=== PATIENT | female | born 1975 | race Asian ===

== ENCOUNTER 2025-01-09 13:01 | Emergency (ER) | payer OTHER, SELFPAY ==
[2025-01-09 13:01] VITALS: BP 141/55; PULSE 57; RESP 14; TEMP 35.7; O2SAT 100; BMI 26.0
--- NOTE | 2025-01-09 13:17 | CT_ITS ---
PROCEDURE: ABDOMEN/PELVIS W IV CONT ONLY 01/09/2025 REASON FOR EXAM: LEFT LOWER QUADRANT AND GROIN PAIN TECHNIQUE: ABDOMEN/PELVIS W IV CONT ONLY Coronal and Sagittal reconstruction series were provided. CONTRAST: 100 mL of Isovue 370 One or more dose reduction techniques were used (e.g., Automated exposure control, adjustment of the mA and/or kV according to patient size, use of iterative reconstruction technique. RADIATION DOSE SUMMARY: DLP: 459 mGycm COMPARISON: None FINDINGS: Limited sections of the lung bases demonstrate no focal pulmonary mass or consolidations. The liver, spleen, pancreas, and both adrenal glands demonstrate no acute findings. The gallbladder is unremarkable. The stomach is unremarkable. The small bowel loops are not dilated. The appendix is normal. No colonic obstruction. Thickened and inflamed left colon may reflect colitis. There is no free air or significant free fluid. 1.2 cm cyst within the left kidney. Otherwise bilateral kidneys are unremarkable. No obstructive uropathy. Mildly thickened urinary bladder wall which may reflect cystitis vs nondistention; consider correlation with urinalysis. The pelvic structures are intact. There is no solid pelvic mass. No significant lymphadenopathy. The aorta and IVC demonstrate no acute findings. Visualized osseous structures demonstrate no acute abnormality. CT/Abdomen/Pelvis W IV Cont ONLY IMPRESSION: Inflamed left colon may reflect colitis. No bowel obstruction. Mildly thickened urinary bladder wall which may reflect cystitis vs nondistenti on; consider correlation with urinalysis. Reading Location: [id number]
--- NOTE | 2025-01-09 13:18 | ED.VIS.GI ---
HPI HPI - GI History of Present Illness Chief Complaint: Abd Pain Informant: patient Abdominal Pain/Flank Pain Onset: Weeks Context: Gradual Onset Timing: Continuous Quality: Cramping and Dull Location: LLQ Current Severity: Mild Maximum Severity: Mild Worsened by: Nothing Relieved by: Nothing Nausea/Vomiting/Emesis GI Symptom: Negative for Nausea or Vomiting Diarrhea/Melena/Hematochezia GI Symptom: Positive for - (Mild constipation.); Negative for Diarrhea, Melena or Hematochezia Associated Symptoms Associated Symptoms: Negative for Dysuria, Frequency, Hematuria or Urgency Narrative Narrative: 49-year-old female prior hysterectomy. No other abdominal or pelvic surgeries. States that she has had left lower quadrant and groin pain for about 2 weeks. Initially started as cramping that is more of a dull ache. Denies any dysuria or hematuria. Denies any fever or weight loss. No vomiting. No diarrhea. Mild constipation. No prior history. Today saw an urgent care was sent to the emergency department. Prior similar symptoms: No Recent Illness/Hospitalization: No PFSH PFSH Medical History Abdominal pain Home Medications ?Medication ?Instructions ?Recorded ?Last Taken ?Type ciprofloxacin HCl 500 mg tablet 500 mg PO BID 10 days #20 tabs 01/09/25 Unknown Rx (Cipro) metronidazole 500 mg tablet 500 mg PO TID 10 days #30 tabs 01/09/25 Unknown Rx Allergy/AdvReac Type Severity Reaction Status Date / Time No Known Allergies Allergy Verified 01/09/25 13:02 Social History Smoking Status: Unknown if ever smoked ROS ROS ED ROS Narrative Abdominal pain. Constitutional Constitutional ED: Denies chills or fever(s) ENT ENT ED: Denies ear pain Cardiovascular Cardiovascular: Denies chest pain Respiratory/Chest Respiratory/Chest: Denies cough or dyspnea Gastrointestinal Gastrointestinal: Reports abdominal pain; Denies constipation, diarrhea, melena, nausea or vomiting Genitourinary Genitourinary ED: Denies dysuria or hematuria Musculoskeletal Musculoskeletal: Denies arthralgias or back pain Integumentary Denies abscess Neurologic Neurologic: Denies headache(s) Psychiatric Psychiatric: Denies anxiety Endocrine Endocrinology: Denies polydipsia Hematologic/Lymphatic Hematologic/Lymphatic: Denies easy bleeding Allergic/Immunologic Allergic/Immunologic ED: Denies mouth swelling, tongue swelling or urticaria EXAM Physical Exam Narrative Exam Narrative: 49-year-old female sitting upright in bed. Young boy present with her. Vital signs are stable afebrile. She does not look septic or toxic. No acute distress. H EENT exam pupils round react light. Mytrex members. Neck nontender. Back nontender. Lungs clear to auscultation bilaterally. Heart regular rhythm rate about 60 no murmur. Chest wall ribs nontender. Abdomen soft nondistended normal bowel sounds without peritoneal signs. Mild tenderness left lower quadrant and groin. No obvious hernia or mass. No lymphadenopathy. No pulsatile mass. Moving all 4 extremities. Normal range of motion. No hip pain or swelling. Normal strength and. Neurologically she is awake alert. Answer questions following commands. Const Vital Signs: 01/09/25 13:01 Temperature 96.3 F L Temperature Source Temporal Pulse Rate 57 L Respiratory Rate 14 Blood Pressure 141/55 H Blood Pressure Mean 83 Pulse Ox 100 Oxygen Delivery Method Room Air Positive well nourished and well developed; Negative for cachectic, contractures or unkempt General Appearance ED: well developed and NAD; Negative for unkempt, cachectic, contractures or pallor Nutritional Appearance: Negative for cachectic HEENT Reports moist mucous membranes normocephalic and atraumatic Eyes PERRL and EOMs intact bilaterally General Eye ED: Negative for pale conjunctiva or scleral icterus Neck no lymphadenopathy, supple and no JVD Resp normal respiratory effort and clear to auscultation bilaterally Cardio regular rate, regular rhythm, S1 normal heart sound, S2 normal heart sound and no murmurs GI non-distended and no masses; Negative for non-tender GI Narrative: Mildly tender left lower quadrant and groin. No hernia or mass. No lymphadenopathy. Auscultation: normoactive bowel sounds Palpation: soft and tender; Negative for guarding, rigid, hepatomegaly, splenomegaly, hernia, mass, pulsatile mass or rebound tenderness present Back/Spine no CVA tenderness General Back: Negative for CVA tenderness Cervical Spine: Negative for cervical spine tenderness Thoracic Spine / Upper Back: Negative for thoracic spinal tenderness Lumbar Spine / Lower Back: Negative for lumbar spinal tenderness Coccyx: Negative for other Extremity full ROM General Extremety ED: Negative for edema or tenderness General Extremity: Negative for edema Neuro CN's II-XII intact bilaterally and moves all extremities Sensorium / Orientation: alert, oriented to person, oriented to place and oriented to time; Negative for orientation impaired, confused or lethargic Motor Exam: strength 5/5 throughout Psych mental status grossly normal and thought process normal Appearance: Negative for unkempt Mood & Affect: Negative for depressed, anxious or tearful Skin no wounds General Skin Exam: Negative for jaundice or pallor Lesions: no lesions Rashes: no rashes Trauma: Negative for abrasion Nails: Negative for discolored MDM MDM MDM Narrative Medical decision making narrative: 49-year-old female left lower quadrant abdominal pain differential would include diverticulitis, UTI, kidney stone, hernia. On exam she has no obvious hernia. CAT scan labs pending. She was offered but did not want a thing for pain or nausea at this time. Repeat exam patient is doing well at 2:46 PM. I went over her test results with her. She will be started on Cipro and Flagyl Syprol twice a day and Flagyl 3 times a day for 10 days outpatient follow-up to ensure she is improving. Treated for colitis. History & Record Review Discussion w/independent historian: Patient and Family Additional record(s) reviewed:: Prior inpatient record, Prior outpatient record, Prior ED visit and Prior labs Lab Data Attestation: I reviewed the patient's lab results. Lab results narrative: CBC normal. White count of 4. H&H 12 and 38. Platelets 204 Chemistry shows sodium 139 gap 9. Normal BUN and creatinine 12 and 0.8. Glucose 104. Liver enzymes unremarkable except ALT 44. Alk phos 110. CAT scan shows inflamed left colon consistent with colitis. UA pending. Gross specimen looks normal. Labs: Laboratory Results - last 24 hr 01/09/25 13:10 WBC 4.7 RBC 4.41 Hgb 12.6 Hct 38.7 MCV 87.8 MCH 28.6 MCHC 32.6 RDW Std Deviation 41.1 RDW Coeff of Tabatha 12.8 Plt Count 204 MPV 10.0 Immature Gran % (Auto) 0.200 Neut % (Auto) 53.4 Lymph % (Auto) 37.7 [place] % (Auto) 7.2 Eos % (Auto) 0.9 Baso % (Auto) 0.6 Absolute Neuts (auto) 2.5 Absolute Lymphs (auto) 1.77 Nucleated RBC % 0 Sodium 139 Potassium 4.2 Chloride 106 Carbon Dioxide 24.7 Anion Gap 9 BUN 12 Creatinine 0.80 Estim Creat Clear Calc 68.36 Est GFR (MDRD) Non-Af 90 BUN/Creatinine Ratio 15.3 Glucose 104 H Calcium 9.2 Total Bilirubin 0.20 AST 29 ALT 44 H Alkaline Phosphatase 110 H Total Protein 6.7 Albumin 4.1 Globulin 2.5 Albumin/Globulin Ratio 1.6 Radiography Diagnostic Testing: Clinical Impression(s) from Imaging Studies Abdomen/Pelvis CT 01/09/25 13:17 IMPRESSION: Inflamed left colon may reflect colitis. No bowel obstruction. Mildly thickened urinary bladder wall which may reflect cystitis vs nondistention; consider correlation with urinalysis. Reading Location: [facility] Discharge Plan Triage Chief Complaint: Abd Pain ED Provider: Stephen Saeed Dx/Rx/DC Orders Clinical Impression: Abdominal pain, Colitis Instructions: ED Understanding Colitis Prescriptions: New ciprofloxacin HCl [Cipro] 500 mg tablet 500 mg PO BID 10 Days Qty: 20 0RF metronidazole 500 mg tablet 500 mg PO TID 10 Days Qty: 30 0RF Primary Care Provider: Lee Ann Guillory NP Referrals: Lee Ann Guillory [employer] OPERATOR, B[employer] OPERATOR-C [Primary Care Provider] - 1 Week Activity Restrictions/Additional Instructions: You have inflammation of your left colon. Diagnosis colitis. You will be started on antibiotics Cipro 1 pill twice a day for 10 days. Flagyl 1 pill 3 times a day for 10 days. Finished both prescriptions. Motrin and Tylenol for pain. Follow-up with your doctor next week to ensure you are improving. Return to the emergency department if you are feeling worse such as increasing pain or fever. Print Language: [place] Disposition Disposition: Home, Self Care
[2025-01-09 13:29] LABS: Hematocrit 38.7 % (37-47); Hemoglobin 12.6 g/dL (12.0-15.0); Immature Granulocytes Count 0.010 X10^3/uL (0.0-0.0); Mean Corp Hgb Conc 32.6 g/dL (32-36); Mean Corpuscular Volume 87.8 fL (81-99); Mean Platelet Vol. 10.0 fl (6.2-12.0); NRBC Flagged by Analyzer 0 % (0-5); Platelet Count 204 K/mm3 (150-450); RBC Distribution Width CV 12.8 % (11.6-14.6); RBC Distribution Width SD 41.1 fl (35.1-43.9); Red Blood Count 4.41 M/mm3 (4.2-5.4); White Blood Count 4.7 K/mm3 (4.4-11.0)
[2025-01-09 14:04] LABS: AST(SGOT) 29 U/L (<=31); Alanine Aminotransfer ALT/SGPT 44 U/L (<=34); Albumin, Serum 4.1 g/dL (3.5-5.0); Alkaline Phosphatase 110 U/L (35-104); Anion Gap 9 (5-15); BUN 12 mg/dL (4-19); BUN/Creat Ratio 15.3 RATIO (10-20); Calcium,Total 9.2 mg/dL (7.6-11.0); Carbon Dioxide 24.7 mmol/L (21.0-32.0); Chloride 106 mmol/L (98-108); Estimated Creatinine Clearance 68.36 ml/min (50-250); Globulin 2.5 g/dL (2.2-4.2); Glucose 104 mg/dL (70-99); Potassium 4.2 mmol/L (3.3-5.1)
[2025-01-09 14:15] LABS: Mucous, Urine 0 SEEN /hpf (<or=2+); Red Blood Cells-Urine 0 SEEN /hpf (0-5); Squamous Epithelial Cells - UA 0 SEEN /hpf (5-10)
[2025-01-09 14:30] LABS: Color, Urine Straw (Yellow); Glucose, Dipstick Normal (Normal); Ketone-Dipstick Negative (Negative); Leukocyte Esterase-Dipstick Negative /ul (Negative); Nitrite-Dipstick Negative (Negative); Occult Blood-Urine Negative /ul (Negative); Protein-Dipstick Negative (Negative); Specific Gravity, Urine 1.015 (1.002-1.030); Urine Bilirubin Dipstick Negative (Negative)
[2025-01-09 14:55] VITALS: BP 123/72; PULSE 57; RESP 16; TEMP 36.6; O2SAT 100
== END 2025-01-09 14:59 | disposition home or self-care (01) ==
PROVIDERS: Emergency Provider Emergency Medicine; PCP Nurse Practitioner Family; Visit Provider Emergency Medicine
DX: R10.9 Unspecified abdominal pain (principal); K52.9 Noninfective gastroenteritis and colitis, unspecified
CPT/HCPCS: 74177; 80053; 81001; 85025; 99284; Q9967; A4216